=== PATIENT | male | born 1995 | race Two or more races ===

== ENCOUNTER 2025-02-12 19:01 | Emergency (ER) | payer SELFPAY ==
[2025-02-12 19:03] VITALS: BMI 41.1
--- NOTE | 2025-02-12 20:08 | PD.EDANX ---
ED Anxiety RME/HPI General Chief Complaint: Shortness of Breath/Dyspnea Stated Complaint: SHORTNESS OF BREATH, ANXIETY Time Seen by Provider: 02/12/25 20:07 Arrival date/time: 02/12/25 19:01 RME / HPI RME / HPI narrative: See [facility] for Dr. Garcia's HPI Documentation. Related Data Allergies Allergy/AdvReac Type Severity Reaction Status Date / Time No Known Allergies Allergy Verified 02/12/25 19:04 Review of Systems Review of Systems Systems Reviewed: All systems reviewed, normal except as documented ED Exam Narrative Physical exam: See [facility] for Dr. Garcia's Physical Exam Documentation. Course Quality Measures none Anxiety [facility] Narrative [facility] Narrative: This section includes all my notes and documentations, including HPI, PE, and ED course. Johan Garcia MD HPI: 29 y/o male presents with multiple symptoms for about a week. He has trouble describing the symptoms. Symptoms can include intense fear, pounding and racing heart, sweating, chills, shaking, trouble breathing, chest pain, stomach pain, nausea, numbness and tingling in the hands and feet and face, confusion, hot flashes, and feeling faint. No other complaints. ROS: All negative except as documented in HPI. Physical Exam: General: Alert and oriented. Appears extremely anxious. High BP noted. Eyes: Conjunctivae and lids clear. PERRL. EOMI. ENT: No nasal congestion. Pharynx normal. TM normal bilaterally. Neck: Supple. Heart: RRR. Lungs: No respiratory distress. Good air movement. No rhonchi, wheezing, rales. Chest: No tenderness. Abdomen: Soft with equivocal tenderness, difficult to localize. Normal bowel sounds. No distension. No rebound or guarding. Back: No CVA tenderness. Skin: Warm and dry. Neuro: Alert and oriented X 3. Cranial nerves II to XII grossly normal. No peripheral motor deficits. I reviewed all diagnostic test results: My interpretation of the chest x-ray is: NAD. My review of the Gallbladder US report is NAD. Blood tests and urine tests declined by patient. Covid/Influenza: Negative. At this point, diagnoses include: Stress and anxiety Treatment here included: Lopressor 100 mg declined by patient. Recommended outpatient treatment. Based on my best medical judgment, made decision no further evaluation or treatment indicated at this time. Patient understands and agrees to the discharge instructions customized and printed, see below. Discharge Instructions from Dr. Garcia printed for you: 1. Because you declined diagnostic tests, we couldn't perform full evaluation. 2. You agreed to COVID/influenza swabs and they were negative. 3. See a private doctor on 02/13/2025 for recheck and further care. To make sure there is no serious underlying conditions. 4. Seek immediate medical care with worsening or with any concerns. Johan Garcia MD Patient data External records reviewed:: [facility] previous records (No prior ED records available for review) Clinical information provided by:: patient Social determinants that could affect healthcare access:: none Patient has the following chronic illnesses:: None reported How is presenting disease/condition affected by chronic disease/condition?: no chronic disease Evaluation data The following diagnostics were reviewed and interpreted by me:: radiology exam(s) and other (specify) (COVID/INFLUENZA) Lab and/or radiology exams considered but not ordered:: None Interpretation Summary: I reviewed all diagnostic test results: My interpretation of the chest x-ray is: NAD. My review of the Gallbladder US report is NAD. Blood tests and urine tests declined by patient. Covid/Influenza: Negative. Medications / Prescriptions Medications or Prescriptions considered but not ordered:: None Medication administrations:: Treatment here included: Lopressor 100 mg declined by patient. Consultations Consultation(s) initiated? (list below): No Diagnosis Differential diagnosis anxiety: hyperventilation, panic disorder, acute anxiety and other (COVID, Influenza, URI) Most likely diagnosis given after review of the tests above:: Stress and anxiety Admission Indicated Admission indicated?: not indicated Explain why admission is indicated or not indicated:: With no condition needing emergent intervention, there was no indication for admission. Admission Request Was there a request for admission?: No Disposition Plan Disposition Plan: Discharge Discharge Attestation Discharge Attestation: The patient and all family members were given an opportunity to ask questions and understood the discharge instructions. Discharge instructions specifically effects, indications for sooner follow up or return to the emergency department, and the expected course of current diagnosis. Patient condition: Stable Discharge Plan Plan Patient Disposition: HOME (Self Care) Prescriptions/Referrals Referrals: No Primary/Family,Physician [Primary Care Provider] - In 1 week Problem List Clinical Impression: Stress Patient/Caregiver Discharge Instructions Discharge Activity: activity as tolerated Education Materials: Responding Better to Stress Additional Instructions: Discharge Instructions from Dr. Garcia printed for you: 1. Because you declined diagnostic tests, we couldn't perform full evaluation. 2. You agreed to COVID/influenza swabs and they were negative. 3. See a private doctor on 02/13/2025 for recheck and further care. To make sure there is no serious underlying conditions. 4. Seek immediate medical care with worsening or with any concerns. Print Language: Turkish Stand Alone Forms: [employer]ha Award Info., Patient Portal Info Letter
[2025-02-12 20:10] VITALS: BP 172/104; PULSE 121; RESP 20; TEMP 37.2; O2SAT 98
--- NOTE | 2025-02-12 20:15 | XR_ITS ---
Examination: Abdomen sonogram, Limited Date and time of exam: February 12, 2025, 2042 hours INDICATIONS: Onset right upper abdominal pain beginning 2 days ago Technique: Real-time lawrence scale transabdominal sonographic images of the upper abdomen obtained. Findings: Negative for gallstones Gallbladder wall is thickened 0.7 cm Common bile duct 0.3 cm Pancreas obscured by bowel gas Liver 18.2 cm fatty infiltration no focal liver lesions Normal hepatopetal portal venous flow Patent IVC IMPRESSION: Negative for cholelithiasis Gallbladder wall thickening 0.7 cm, HIDA scan or MRCP follow-up would confirm acute acalculous cholecystitis
--- NOTE | 2025-02-12 20:15 | XR_ITS ---
EXAMINATION: PA chest single view TECHNIQUE: Upright PA chest single view Date and time: February 12, 2025, 2050 hours INDICATIONS: Shortness of breath today. FINDINGS: Normal heart size Lungs are clear. Osseous structures are intact. IMPRESSION: No active disease
[2025-02-12 22:23] LABS: COVID-19 Antigen (In-House) Negative (Negative); Influenza A Ag Negative; Influenza B Ag Negative
[2025-02-12 23:05] VITALS: BP 132/69; PULSE 95; RESP 18; O2SAT 98
== END 2025-02-12 23:30 | disposition home or self-care (01) ==
PROVIDERS: Emergency Provider Emergency Medicine
DX: F43.9 Reaction to severe stress, unspecified (principal); R10.11 Right upper quadrant pain; R06.02 Shortness of breath
CPT/HCPCS: 71045; 76705; 87502; 87811; 99283